=== PATIENT | male | born 1985 | race Caucasian/White ===

== ENCOUNTER 2021-09-04 18:07 | Emergency (ER) | payer BC ==
[2021-09-04] MEDS ORDERED: NA CHLORIDE 0.9% 1,000 ML ONE (18:33)
[2021-09-04 18:54] LABS: Absolute Lymphocytes (CBC) 0.3 K/uL (0.7-4.9); Lymphocytes % 2.8 % (15.3-44.8); MPV 9.7 fL (7.6-11.3); RBC Red Blood Cell Count 4.67 M/uL (4.33-5.43)
[2021-09-04 19:07] LABS: Albumin 3.4 g/dL (3.4-5.0); Bilirubin Total 0.5 mg/dL (0.2-1.0); Potassium 3.7 mmol/L (3.5-5.1); Protein, Total 7.3 g/dL (6.4-8.2)
--- NOTE | 2021-09-04 19:27 | EDPHYS ---
Physician Documentation [facility] Name: Jhoan Mcqueen Age: 36 yrs Sex: Male : 1985 Arrival Date: 09/04/2021 Time: 18:11 Bed 19 Private MD: ED Physician Jaja Lazo HPI: 09/04 18:19 This 36 yrs old Male presents to ER via EMS with complaints of Abdominal Pain, jr8 Nausea/Vomiting/Diarrhea, Fever. 18:19 Onset: The symptoms/episode began/occurred today. Associated signs and symptoms: jr8 Pertinent positives: body aches. Patient states he woke up this morning feeling nauseous, burning abdominal pain, diarrhea, fever, and body aches. He states that he tried to drink some Gatorade and that it made him feel worse. He reports that his whole body hurts.. Historical: - Allergies: 18:15 PENICILLINS; prado - Home Meds: 18:15 None [Active]; prado - PMHx: 18:15 None; prado - PSHx: 18:15 None; prado - Immunization history:: Adult Immunizations up to date. - Social history:: Smoking status: Patient denies any tobacco usage or history of. ROS: 18:19 Constitutional: Negative for fever, chills, and weight loss, Cardiovascular: Negative jr8 for chest pain, palpitations, and edema, Respiratory: Negative for shortness of breath, cough, wheezing, and pleuritic chest pain, Skin: Negative for injury, rash, and discoloration. 18:19 Abdomen/GI: Positive for nausea, vomiting, and diarrhea, abdominal cramps. 18:19 All other systems are negative. Exam: 18:19 Constitutional: This is a well developed, well nourished patient who is awake, alert, jr8 and in no acute distress. Cardiovascular: Regular rate and rhythm with a normal S1 and S2. No gallops, murmurs, or rubs. Normal PMI, no JVD. No pulse deficits. Respiratory: Lungs have equal breath sounds bilaterally, clear to auscultation and percussion. No rales, rhonchi or wheezes noted. No increased work of breathing, no retractions or nasal flaring. Skin: Warm, dry with normal turgor. Normal color with no rashes, no lesions, and no evidence of cellulitis. 18:19 Abdomen/GI: Inspection: abdomen appears normal, Bowel sounds: hyperactive, in all quadrants, Palpation: abdomen is soft and non-tender. Vital Signs: 18:13 BP 106 / 82; Pulse 126; Resp 18; Temp 99.2(O); Pulse Ox 96% on R/A; Weight 131.54 kg; prado Height 6 ft. 2 in. (187.96 cm); 19:17 BP 105 / 62; Pulse 103; Resp 18; Pulse Ox 97% on R/A; kd3 18:13 Body Mass Index 37.23 (131.54 kg, 187.96 cm) prado MDM: 18:13 Patient medically screened. jr8 19:25 Data reviewed: vital signs, nurses notes, lab test result(s), and as a result, I will jr8 discharge patient. Data interpreted: Pulse oximetry: on room air is 97 %. Interpretation: normal. Counseling: I had a detailed discussion with the patient and/or guardian regarding: the historical points, exam findings, and any diagnostic results supporting the discharge/admit diagnosis, lab results, the need for outpatient follow up, a family practitioner, to return to the emergency department if symptoms worsen or persist or if there are any questions or concerns that arise at home. Response to treatment: the patient's symptoms have markedly improved after treatment, patient is well hydrated. Special discussion: Based on the patient's Hx, exam, and Dx evaluation, there is no indication for emergent surgery or inpatient Tx. It is understood by the patient/guardian that if the Sx's persist or worsen they need to return immediately for re-evaluation. 09/04 18:23 Order name: CBC with Diff 09/04 18:23 Order name: CMP; Complete Time: 19:16 09/04 18:23 Order name: Lipase; Complete Time: 19:16 09/04 18:23 Order name: IV Saline Lock; Complete Time: 18:44 09/04 18:24 Order name: Flu; Complete Time: 19:24 09/04 18:23 Order name: Labs collected and sent; Complete Time: 18:44 Administered Medications: 18:44 Drug: NS 0.9% 1000 ml Route: IV; Rate: 1 bolus; Site: right antecubital; 19:42 Follow up: Rate change 1000 ml; IV Status: Completed infusion kd3 Disposition Summary: 09/04/21 19:26 Discharge Ordered Location: Home [facility] Problem: new jr8 Symptoms: have improved jr8 Condition: Stable jr8 Diagnosis - Acute Gastroenteritis jr8 Followup: jr8 - With: Private Physician - When: 2 - 3 days - Reason: Recheck today's complaints, Continuance of care, Re-evaluation by your physician Discharge Instructions: - Discharge Summary Sheet jr8 - Viral Gastroenteritis, Adult jr8 Forms: - Medication Reconciliation Form jr8 - Thank You Letter jr8 - Antibiotic Education jr8 - Prescription Opioid Use jr8 Prescriptions: - promethazine 25 mg Oral Tablet - take 1 tablet by ORAL route every 6 hours As needed; 20 tablet; Refills: 0, jr8 Product Selection Permitted Signatures: Dispatcher [employer] Hector Weinstein PA PA jr8 Fabienne Sol RN RN Mansi Jain RN kd3
--- NOTE | 2021-09-04 19:27 | ER ---
Nurse's Notes [facility] Name: Jhoan Mcqueen Age: 36 yrs Sex: Male : 1985 Arrival Date: 09/04/2021 Time: 18:11 Bed 19 Private MD: Diagnosis: Acute Gastroenteritis Presentation: 09/04 18:13 Chief complaint: Patient states: pt presented to ED reporting fever, Abdominal pain, prado N,V,D. [employer] given Tylenol 1000mg PO. Zofran 4mg IV and NS 1000ml. Coronavirus screen: Vaccine status: Patient reports receiving the 2nd dose of the covid vaccine. Ebola Screen: Patient denies travel to an Ebola-affected area in the 21 days before illness onset. Initial Sepsis Screen: Does the patient meet any 2 criteria? HR > 90 bpm. No. Patient's initial sepsis screen is negative. Does the patient have a suspected source of infection? No. Patient's initial sepsis screen is negative. Risk Assessment: Do you want to hurt yourself or someone else? Patient reports no desire to harm self or others. Onset of symptoms was September 04, 2021. 18:13 Method Of Arrival: EMS: [facility] prado 18:13 Acuity: JAMARI 3 prado Triage Assessment: 18:15 General: Appears in no apparent distress. Behavior is calm, cooperative. Pain: prado Complains of pain in abdomen. GI: Reports diarrhea, nausea, Pain is 6 out of 10 on a pain scale. vomiting. Historical: - Allergies: 18:15 PENICILLINS; prado - Home Meds: 18:15 None [Active]; prado - PMHx: 18:15 None; prado - PSHx: 18:15 None; prado - Immunization history:: Adult Immunizations up to date. - Social history:: Smoking status: Patient denies any tobacco usage or history of. Screenin:16 Abuse screen: Denies threats or abuse. Denies injuries from another. Nutritional prado screening: No deficits noted. Tuberculosis screening: No symptoms or risk factors identified. Fall Risk None identified. Assessment: 18:16 General: Appears in no apparent distress. Behavior is calm, cooperative. Pain: prado Complains of pain in abdomen. 18:17 GI: Abd is soft Abdomen is tender to palpation. prado 19:16 General: Appears in no apparent distress. Behavior is calm, cooperative. Neuro: Level kd3 of Consciousness is awake, alert, Oriented to person, place, time, situation. Cardiovascular: Patient's skin is warm and dry. Respiratory: Airway is patent Trachea midline Respiratory effort is even, unlabored, Respiratory pattern is regular, symmetrical. Vital Signs: 18:13 BP 106 / 82; Pulse 126; Resp 18; Temp 99.2(O); Pulse Ox 96% on R/A; Weight 131.54 kg; prado Height 6 ft. 2 in. (187.96 cm); 19:17 BP 105 / 62; Pulse 103; Resp 18; Pulse Ox 97% on R/A; kd3 18:13 Body Mass Index 37.23 (131.54 kg, 187.96 cm) ED Course: 18:11 Patient arrived in ED. prado 18:13 Hector Gu PA is PHCP. jr8 18:13 Jaja Lazo MD is Attending Physician. jr8 18:15 Triage completed. prado 18:15 Arm band placed on. prado 18:16 Patient has correct armband on for positive identification. Bed in low position. prado 18:16 No provider procedures requiring assistance completed. Maintain EMS IV. Gauge \T\ site: prado 18g RAC. 18:27 Fabienne Sol, RN is Primary Nurse. prado 18:44 Flu Sent. prado 18:44 CBC with Diff Sent. prado 18:44 CMP Sent. prado 18:44 Lipase Sent. prado 19:19 Primary Nurse role handed off by Fabienne Sol, RN mw2 19:41 Mansi Jain, RICK is Primary Nurse. kd3 19:41 IV discontinued, intact, bleeding controlled, No redness/swelling at site. Pressure kd3 dressing applied. Administered Medications: 18:44 Drug: NS 0.9% 1000 ml Route: IV; Rate: 1 bolus; Site: right antecubital; prado 19:42 Follow up: Rate change 1000 ml; IV Status: Completed infusion kd3 Outcome: 19:26 Discharge ordered by . jr8 19:41 Discharged to home ambulatory. kd3 19:41 Condition: stable 19:41 Discharge instructions given to patient, Instructed on discharge instructions, follow up and referral plans. medication usage, Demonstrated understanding of instructions, follow-up care, medications, Prescriptions given X 1. 19:42 Patient left the ED. kd3 Signatures: Hector Gu PA PA jr8 Karin De Jesus mw2 Mansi Jain, RN RN kd3 Fabienne Sol RN RN prado
[2021-09-04 20:03] LABS: Blood Morphology Comment NOT SEEN (NOT SEEN); Platelet Estimate ADEQ; White Blood Cell Scan OK (OK)
[2021-09-05 09:25] VITALS: TEMP 99.2
[2021-09-05 09:26] VITALS: BP 105/62; O2SAT 97
== END 2021-09-04 19:42 | disposition home or self-care (01) ==
LOC: ER 18:07
DX: K52.9 Noninfective gastroenteritis and colitis, unspecified (principal); Z88.0 Allergy status to penicillin
CPT/HCPCS: 85025; 36415; 83690; 80053; 87804 ×2; 96360; 99284; J7030